=== PATIENT | female | born 1990 | race Two or more races ===

== ENCOUNTER 2017-03-30 00:33 | Inpatient (IN) | payer OTHER ==
[~2017-03-30] VITALS: Ht 160 cm; Wt 108.9 kg
[2017-03-30] VITALS (9 sets, daily range): BP systolic 113–142; BP diastolic 54–80
[2017-03-30] MEDS ORDERED: MELO15TA4 PO (00:46)
[2017-03-30] MEDS ORDERED: IBUP-1022 PO (00:46)
[2017-03-30] MEDS ORDERED: ROBA750T4 PO (00:46)
[2017-03-30] MEDS ORDERED: GABA-282 PO (00:46)
[2017-03-30 01:24] LABS: CONTROL LINE HCG INT CTR LINE PRESENT
[2017-03-30] MEDS ORDERED: MORPHINE 4 MG/ML 1ML SYRINGE IV ONE (01:30)
[2017-03-30] MEDS ORDERED: ONDANSETRON 4MG/2ML VIAL (J2405) IV ONE (01:30)
[2017-03-30 01:39] LABS: BASO % 0.3 % (0.0-1.0); EOS # 0.3 K/mm3 (0.0-0.50); EOS % 2.1 % (0.0-3.0); LARGE UNSTAINED CELL # 0.2 K/mm3 (0.0-0.4); LARGE UNSTAINED CELL % 1.2 % (0.0-4.0); LYMPH # 3.7 K/mm3 (1.5-6.5); LYMPH % 23.1 % (24.0-44.0); MEAN CORPUSCULAR HEMOGLOBIN 28.4 pg (27.0-33.0); MEAN CORPUSCULAR HGB CONC 33.9 g/dl (32.0-36.5); MEAN CORPUSCULAR VOLUME 83.6 fl (80.0-96.0); MONO # 0.6 K/mm3 (0.0-0.8); NEUTROPHILS # 10.6 K/mm3 (1.8-7.7); NEUTROPHILS % 69.2 % (36.0-66.0); PLATELET COUNT, AUTOMATED 329 k/mm3 (150-450); RED CELL DISTRIBUTION WIDTH 13.8 % (11.5-14.5); WHITE BLOOD COUNT 15.3 K/mm3 (4.0-10.0)
[2017-03-30 01:44] LABS: ANION GAP 7 MEQ/L (8-16); BLOOD UREA NITROGEN 12 MG/DL (7-18); CALCIUM LEVEL 9.4 MG/DL (8.5-10.1); CARBON DIOXIDE LEVEL 25 MEQ/L (21-32); CHLORIDE LEVEL 110 MEQ/L (98-107); CREATININE FOR GFR 0.88 MG/DL (0.55-1.02); GLOMERULAR FILTRATION RATE > 60.0 (>60); GLUCOSE, FASTING 116 MG/DL (70-105); POTASSIUM SERUM 3.6 MEQ/L (3.5-5.1); SODIUM LEVEL 142 MEQ/L (136-145)
--- NOTE | 2017-03-30 03:10 | REPUSA ---
CLINICAL HISTORY: left flank pain. TECHNIQUE: Multiple axial, sagittal and coronal CT images were obtained through the abdomen and pelvi s without administration of oral or IV contrast material. COMMENTS: The liver is fatty but otherwise of uniform attenuation without mass or defect. There is no intra or extrahepatic biliary ductal dilatation. The spleen is normal. The gallbladder is surgically absent. The pancreas is of normal contour and attenuation characteristics. There is no evidence of adrenal ma ss. The kidneys are normal in size, shape and configuration. No right renal or ureteral calculi are ident ified. There is a 12 x 10 mm calculus noted in the left UPJ producing moderate hydroureteronephrosis. Several additional punctate calculi noted in the left mid pole. There is no evidence for appendicitis. There is no bowel wall thickening. No evidence for small or la rge bowel obstruction. There is no evidence of abdominal ascites or lymphadenopathy. There is no evidence of intrinsic or extrinsic bladder mass. There is no pelvic ascites or lymphadeno drea. The uterus and ovaries are WNL. Images of the lung bases show no evidence of pleural or parenchymal mass. There are no pleural effusi ons. The bony structures are free of lytic or blastic lesions. IMPRESSION: 12 x 10 mm calculus noted in the left UPJ producing moderate hydroureteronephrosis. Several additiona l punctate calculi noted in the left mid pole. Thank you for your kind referral of this patient.
[2017-03-30] MEDS ORDERED: KETOROLAC 30 MG/ML VIAL (J1885) IV ONE (03:30)
[2017-03-30] MEDS ORDERED: MORPHINE 4 MG/ML 1ML SYRINGE IV PRN (04:00)
[2017-03-30] MEDS ORDERED: TRIMETHOPRIM/SULFAMETHOXAZOLE 160 MG in D5W 500 ML IV ONE (04:00)
[2017-03-30] MEDS ORDERED: GLUCAGON FOR INJ 1 MG VIAL (J1610) SC PRN (04:00)
[2017-03-30] MEDS ORDERED: GLUCOSE 4 GM CHEW TABLET PO PRN (04:00)
[2017-03-30] MEDS ORDERED: PERCOCET 5MG/325MG TAB PO PRN (04:00)
[2017-03-30] MEDS ORDERED: DEXTROSE 50% 50 ML SYRINGE IV PRN (04:00)
[2017-03-30] MEDS ORDERED: ONDANSETRON 4MG/2ML VIAL (J2405) IV PRN ×2 (04:00→17:00)
[2017-03-30] MEDS: NS 1,000 ML IV SCH ×3 (04:07→13:55)
[2017-03-30] MEDS ORDERED: NICOTINE POLACRILEX 2 MG GUM PO PRN (04:45)
--- NOTE | 2017-03-30 05:35 | HPE ---
DATE OF ADMISSION: 03/30/2017 PRIMARY CARE PROVIDER: Dr. Stahl. HOSPITALIST ATTENDING: Will be Dr. Joshua Negrete. CHIEF COMPLAINT: Left flank/back pain. HISTORY OF PRESENTING ILLNESS: 26-year-old female with no significant past medical history aside from active smoking presents to the emergency room with 2-day history of sharp stabbing pain on the left back radiating towards her stomach. Patient had been in her usual state of health until 2 days ago when she felt unwell and was nauseated and vomiting while at work. She then came home. She has had decrease in oral intake due to this and was watching television around 10:30 at night when she developed sharp stabbing pain on the left side of her back with radiation towards the stomach. She thought it was her sciatica acting up and therefore took one extra dose of gabapentin and methocarbamol. She denies any fever or chills. Per her friend and family, she was screaming in pain and presented to the emergency room for evaluation. She otherwise denies any dysuria, urgency, frequency or any hematuria. No prior episodes of kidney stones in the past. Denies any sexually transmitted diseases (STDs), vaginal discharge. Patient does admit to having the pain initially improve with ambulation, but once she sat down in the emergency room (ER), lying still makes it feel better and ambulation makes it worse. Urine is negative. CT abdomen and pelvis shows a stone in the ureteropelvic junction (UPJ) on the left which measures 12 x 10 mm producing moderate hydroureteronephrosis with several additional punctate calculi in the left mid pole. Hospitalist service was called to admit for left UPJ stone with moderate hydroureteronephrosis. She denies any recent weight gain, weight loss, changes in vision, rhinorrhea, sore throat, dysphagia, odynophagia, ear discharge, visual changes, blurred vision, shortness of breath, chest pain, pressure or tightness, cough. She has had episodes of nausea. Currently has back pain, radiation towards the stomach. No hematuria, dysuria, urgency, frequency, fever. Complains of left-sided back and flank pain, chronic sciatica, active smoker. Denies upper or lower extremity weakness. PAST MEDICAL HISTORY: cholelithiasis Obesity BMI Chronic Back Pain PAST SURGICAL HISTORY: 1. Cholecystectomy. 2. Laser surgery at the age of [age]. ALLERGIES: To HYDROCODONE and AMOXICILLIN causing nausea and vomiting. HOME MEDICATIONS: Gabapentin 600 mg po qhs Ibuprofen 600 mg po q6hrs PRN Meloxicam 15 mg po daily Robaxin 750 mg po q6hrs PRN SOCIAL HISTORY: Smokes 5-6 cigarettes a day since 2011. Denies alcohol use. 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 FAMILY HISTORY: Mother alive age 45 with her hip repaired, cervical cancer and rheumatoid arthritis. Father is alive with unknown medical problems. REVIEW OF SYSTEMS: 12-point systems obtained, all of which are negative aside from positive findings on history of present illness (HPI). PHYSICAL EXAMINATION: Temperature 96.1, pulse 97 sinus rhythm, respiratory rate 18, blood pressure 123/77, 100% on room air. Generally, awake, alert, oriented times three, answering questions appropriately. No icterus, jaundice. Pupils are equally round and reactive to light and accommodation. Extraocular muscles are intact. Normocephalic, atraumatic. Moist mucous membranes. Neck is supple, full range of motion. No cervical lymphadenopathy, thyromegaly or pharyngeal erythema. Lungs are clear to auscultation. No wheezing, rales or rhonchi. Air entry is equal bilaterally. Heart: S1, S2, sinus rhythm. No murmurs, rubs or gallops. Abdomen is soft. Positive costovertebral angle (CVA) tenderness on the left. No rebound or guarding. Positive bowel sounds times four quadrants. No hepatosplenomegaly. Cholecystectomy scar noted, well healed. Extremities: No cyanosis, clubbing or any pitting edema. LABORATORY DATA: White count 15.3, hemoglobin 13, hematocrit 39, platelet count 329, 69% neutrophils. Sodium 142, potassium 3.6, chloride 110, bicarbonate 25, BUN 12, creatinine 0.88 , glucose 116, calcium 9.4, lipase of 173. HCG is negative. Urinalysis cloudy urine, pH of 5, 2+ protein, negative ketones, glucose, 3+ blood, negative nitrite, 1+ leukocyte esterase, 9 WBCs, 3+ bacteria. Microbiology: Urine and blood cultures are pending. IMAGING STUDIES: CT abdomen and pelvis shows liver is fatty, otherwise of uniform attenuation without mass or defect. There is no intra or extrahepatic biliary ductal dilatation. Spleen is normal. Gallbladder is surgically absent. Pancreas is of normal contour and attenuation characteristics. No evidence of adrenal mass. Kidneys are normal size, shape and configuration. No right renal ureteral calculi are identified. There is a 12 x 10 mm calculus noted in left UPJ producing moderate hydroureteronephrosis, several additional punctate calculi noted in left mid pole. No evidence of appendicitis. No bowel wall thickening. No small bowel obstruction. No evidence of abdominal ascites or lymphadenopathy. No evidence of intrinsic or extrinsic bladder mass. No pelvic ascites or lymphadenopathy. Uterus and ovaries are within normal limits. There are no pleural effusions. Bony structures are free of lytic or blastic lesions. ASSESSMENT AND PLAN: This is a 26-year-old female with history of morbid obesity, body mass index (BMI) of 41.7, active tobacco use, presents to the emergency room with a 2-day history of increasing left-sided back pain, radiation down towards her stomach, found to have a left ureteropelvic junction (UPJ) stone and moderate hydronephrosis, admitted under medical service. She will be admitted as an inpatient for the following issues: 1. Systemic inflammatory response with respiratory rate of 26, pulse of 97. Most likely secondary to left UPJ stone. Supportive care for now with intravenous fluids and antibiotics. 2. Left UPJ stone, which is obstructing causing hydroureteronephrosis. Creatinine is still normal. Per Dr. May Perez's recommendations, urologist construction code administrator, patient is to be given Bactrim and kept nothing by mouth. Intravenous (IV) fluids for now. Hyperglycemic protocol and fingersticks every 6 hours while patient is nothing by mouth to prevent hyperglycemia. 3. Morbid obesity, BMI of 41. Check lipid profile and hemoglobin A1c. Patient will need to diet and followup with primary care physician for weight loss programs and referral to senior director of strategy. 4. Active smoking. Tobacco cessation counseling. Nicotine gum and nicotine patch. 5. Deep venous thrombosis (DVT) prophylaxis with compression stockings. 6. History of chronic back pain. Hold off on chronic gabapentin and methocarbamol and ibuprofen for now. Patient will be assigned to Dr. Joshua Negrete at 7 a.m. on 03/30/2017. [facility]OSPITALAlecia
[2017-03-30] MEDS: NICOTINE 7 MG/24 HR TRANSDERMAL TD SCH ×2 (09:00→09:14)
[2017-03-30] MEDS ORDERED: CONRAY-60 60% 50ML VIAL (Q9961) As Ordered ONE (15:11)
[2017-03-30] MEDS ORDERED: LIDOCAINE 2% 5ML JELLY UROJET As Ordered ONE (15:46)
[2017-03-30] MEDS ORDERED: PROPOFOL 200 MG/20 ML VIAL As Ordered ONE ×2 (15:47→16:02)
[2017-03-30] MEDS ORDERED: LIDOCAINE 2% INJ 100 MG/5 ML SDV (FOR ANES.) As Ordered ONE (15:47)
[2017-03-30] MEDS ORDERED: MIDAZOLAM INJ 2 MG/2 ML VIAL (J2250) As Ordered ONE (15:47)
[2017-03-30] MEDS ORDERED: fentaNYL 100 MCG/2 ML INJECTION (J3010) As Ordered ONE (15:47)
[2017-03-30] MEDS ORDERED: ONDANSETRON 4MG/2ML VIAL (J2405) As Ordered ONE (15:56)
--- NOTE | 2017-03-30 16:25 | REP ---
Retrograde pyelogram: A series of two intraoperative fluoroscopic views is performed during placement of a left ureteral stent. Final film reveals the proximal pigtail to be an upper pole mariah of the left kidney. The distal pigtail is excluded at the inferior margin of the film. Fluoroscopic exposure time is 9 seconds. Fluoroscopic images are performed with last image hold technology. These images require no additional radiation. Signed by Matti Casas MD 03/30/2017 04:17 P
[2017-03-30] MEDS ORDERED: LR 1,000 ML IV SCH (17:00)
[2017-03-30] MEDS ORDERED: fentaNYL 100 MCG/2 ML INJECTION (J3010) IV PRN (17:00)
--- NOTE | 2017-03-30 17:03 | CR ---
DATE OF CONSULTATION: 03/30/2017 REASON FOR CONSULTATION: Left ureteropelvic junction obstructing stone measuring 12 x 10 mm. HISTORY OF PRESENT ILLNESS: The patient is a 26-year-old female who comes in with left back pain radiating to the groin pain with nausea and vomiting. She has had the pain several days prior to her presentation at the emergency room but it was just a crampy pain and all the sudden became extremely severe. A CT scan of the abdomen and pelvis was done which showed a 12 x 10 mm calculus in the left ureteropelvic junction with moderate hydroureter nephrosis. Some several punctate calculi was noted in the left mid pole but no other stones were seen. The patient was admitted for observation and I recommend surgical management. Her white blood count on admission was 15,000 but she has been afebrile. The patient denies any gross hematuria or previous history of kidney stones. She has no burning with urination and she has had two urinary tract infections during her lifetime and these were during a . She normally feels like she empties her bladder completely and denies any previous urinary history. PAST MEDICAL HISTORY: Migraine headaches and sciatica. PAST SURGICAL HISTORY: Cholecystectomy and laser surgery on her eye when she was 5 years of age. MEDICATIONS: Permanent control implant in her arm, meloxicam, gabepentin, and methocarbamol. SOCIAL HISTORY: She is with two children. She does smoke 5-10 cigarettes daily. She does not drink alcohol or use drugs. FAMILY HISTORY: There is no family history of kidney stones. Her mother is 45 with high blood pressure and her father is 45 and healthy. There is diabetes and heart disease in her grandparents. REVIEW OF SYSTEMS: A 12-system review was essentially negative except for sciatica, migraine headaches, and then what is in the history of present illness (HPI). PHYSICAL EXAMINATION: This is a well-developed, well-nourished female lying in the hospital bed in no apparent respiratory distress, alert and oriented times three. She is afebrile at 97.4. Her blood pressure is 113/57 and her pulse is 77. She appears comfortable and not in any acute pain. Her head is normocephalic and atraumatic. Her eyes are pupils are equal, round, and reactive to light and accommodation (PERRLA) and extraocular muscles intact (EOMI). Her neck is supple and there is no supraclavicular or cervical adenopathy. Her heart has a regular rate and rhythm. Her lungs are clear to auscultation and percussion. She has no costovertebral angle (CVA) tenderness now. Her abdomen is soft and nontender without any rebound, guarding or masses. Her extremities show no cyanosis, clubbing or edema. LABORATORY DATA: Her white blood count was 15.3 on admission at 1:00 a.m. I was called at 4:00 a.m. Her hemoglobin 13.5 and her hematocrit is 39.8. Her BUN is 12 and her creatinine is 0.88. Her HCG is negative for . A CT scan of the abdomen and pelvis on 03/30/2017 did show a 12 x 10 mm left UPJ stone and some punctate left stones. DISCUSSION: I discussed these findings at length with Ana Maria in the hospital today. I recommend that she have a ureteral stent placed as soon as possible. I called down to the operating room very early this morning, since I got called with the consultation at 4:00 a.m.. Unfortunately, there are four or five emergency cases in the operating room and I will not be able to take her until this afternoon. At this point though, she is stable and I have been asked to be called if she spikes any temperatures. We discussed exactly how cystoscopy and left ureteral stent is done. We discussed the major risks of the procedure which included but was not limited to the risks of general anesthesia, reactions to medication, bleeding, infection, pain from the stent, need to take care of the stone in the future, and need for stent removal. At this point, she understands that we are not removing the stone and just placing the stent to decompress the infected obstructed system. All of her questions were answered and informed consent was obtained. IMPRESSION: 1. A 12 x 10 mm left ureteropelvic junction (UPJ) stone causing severe left back pain in a patient with a white blood count of 15, but now very comfortable after pain medications. 2. Smoker. 3. Other medical problems including migraine headaches and sciatica. 4. Punctate left calculi also but in a patient who had never passed a previous kidney stone. PLAN: 1. Bring the patient to the operating room today for a cystoscopy and left ureteral stent placement. 2. Continue medical management with IV fluids, antibiotics, and pain control. 3. Await final urine and blood cultures.
[2017-03-30] MEDS: BACTRIM 160MG/800MG DS TAB PO SCH (20:28)
[2017-03-30] MEDS: PERCOCET 5MG/325MG TAB PO PRN (21:03)
[2017-03-31 02:00] VITALS: BP 113/68
[2017-03-31] MEDS: PERCOCET 5MG/325MG TAB PO PRN (05:22)
[2017-03-31 06:00] VITALS: BP 134/77
[2017-03-31 07:06] LABS: BASO % 0.4 % (0.0-1.0); EOS # 0.2 K/mm3 (0.0-0.50); EOS % 2.2 % (0.0-3.0); LARGE UNSTAINED CELL # 0.2 K/mm3 (0.0-0.4); LARGE UNSTAINED CELL % 1.5 % (0.0-4.0); LYMPH # 2.6 K/mm3 (1.5-6.5); LYMPH % 25.2 % (24.0-44.0); MEAN CORPUSCULAR HEMOGLOBIN 28.3 pg (27.0-33.0); MEAN CORPUSCULAR HGB CONC 34.1 g/dl (32.0-36.5); MONO # 0.4 K/mm3 (0.0-0.8); MONO % 4.1 % (0.0-5.0); NEUTROPHILS # 6.8 K/mm3 (1.8-7.7); NEUTROPHILS % 66.6 % (36.0-66.0); PLATELET COUNT, AUTOMATED 293 k/mm3 (150-450); RED CELL DISTRIBUTION WIDTH 13.4 % (11.5-14.5); WHITE BLOOD COUNT 10.2 K/mm3 (4.0-10.0)
[2017-03-31 07:21] LABS: ANION GAP 9 MEQ/L (8-16); BLOOD UREA NITROGEN 8 MG/DL (7-18); CALCIUM LEVEL 8.3 MG/DL (8.5-10.1); CARBON DIOXIDE LEVEL 25 MEQ/L (21-32); CHLORIDE LEVEL 111 MEQ/L (98-107); CREATININE FOR GFR 0.66 MG/DL (0.55-1.02); GLOMERULAR FILTRATION RATE > 60.0 (>60); GLUCOSE, FASTING 83 MG/DL (70-105); POTASSIUM SERUM 4.5 MEQ/L (3.5-5.1); SODIUM LEVEL 145 MEQ/L (136-145)
[2017-03-31] MEDS: BACTRIM 160MG/800MG DS TAB PO SCH (08:34)
[2017-03-31] MEDS: NICOTINE 7 MG/24 HR TRANSDERMAL TD SCH (08:35)
[2017-03-31] MEDS ORDERED: BACT800T5 PO (08:56)
--- NOTE | 2017-03-31 09:22 | RO ---
DATE OF PROCEDURE: 03/30/2017 PREOPERATIVE DIAGNOSIS: 12 x 10 mm obstructing left ureteral pelvic junction stone. POSTOPERATIVE DIAGNOSIS: 12 x 10 mm obstructing left ureteral pelvic junction stone. PROCEDURE: Cystoscopy, left retrograde pyelogram, and left double-J ureteral stent placement. SURGEON: Dr. May Perez CONDUIT REAMER OPERATOR: ANESTHESIA: MAC with local. FINDINGS: Stone well seen on x-ray. DRAINS: #6-Uzbek universal double-J ureteral stent. INDICATIONS FOR PROCEDURE: The patient is a 26-year-old female who was admitted through the emergency room early this morning with complaints of severe left flank pain, found on CT scan to have a 12 x 10 mm left ureteral pelvic junction stone with obstruction and a white blood count of15,000. After discussing all different options, alternatives, risks, and benefits it was decided to bring her emergently to the operating room for cystoscopy and stent placement. All options, alternatives, risks and benefits were discussed and informed consent was obtained in both verbal and written form. PROCEDURE: The patient was brought into the operating room. She had been getting Bactrim DS and had thromboembolic deterrent stockings (TEDS) and sequential compression devices in place. Anesthesia was induced and she was placed in the lithotomy position and careful attention was paid that her pressure points were well padded and protected. She was prepped and draped in the usual fashion. 2% lidocaine jelly was placed in the urethra. Next, a 21-Uzbek cystoscope was inserted. The urethra was noted to be open without any evidence of lesions or strictures. Upon entering the bladder, both ureteral orifices were seen. There was no evidence of stones, erythematous patches, lesions or other significant abnormalities. At this point, a 0.035 Guidewire was placed in the left ureteral orifice and a retrograde pyelogram was done which showed the stone extremely well and there was no other obstruction. At this point, a #6-Uzbek universal double-J ureteral stent was placed and there was an excellent curl up in the kidney and down in the bladder. The bladder was emptied and the patient was returned to recovery room in stable condition. Preoperatively, it was discussed with the patient that we were only placing a stent and that the stones still needed to be removed in the future. She will be scheduled as an outpatient for ESWL. She also clearly understands that the stent will need to be removed at some point.
[2017-03-31 10:00] VITALS: BP 105/59
[2017-03-31] MEDS ORDERED: CIPR-249 PO (10:06)
--- NOTE | 2017-03-31 11:58 | DSES ---
DATE OF ADMISSION: 03/30/2017 DATE OF DISCHARGE: DISCHARGE DIAGNOSIS: Hydroureteronephrosis. SECONDARY DIAGNOSES: Obstructing ureteral stone. Obesity. Chronic back pain. CONSULTS: May Perez MD, urology PROCEDURES: Ureteral stent placement 03/30/2017. HOSPITAL COURSE: The patient is a 26-year-old female who presented with left-sided flank and inguinal pain. In the emergency room for 1 day. She was found to have a 12 x 10 mm calculus in the left ureteropelvic junction (UPJ) producing moderate hydroureteronephrosis with several additional punctate calculi in the left mid pole. The patient was seen by the emergency room and then by Dr. Kay who admitted the patient to the medical-surgical floor. I saw the patient early in the morning of 03/30/2017, as well, and contacted Dr. Perez of urology, who presented to the hospital and completed a stent placement in the left ureter. The patient tolerated the procedure well. At the present time, the patient's pain is significantly reduced. She denies chest pain, shortness of breath, fevers, chills, nausea, vomiting, or diarrhea. OBJECTIVE: Vital signs: Temperature 98.1, pulse 75, respiratory rate 17, blood pressure (BP) 134/77, oxygen (O2) saturation 97% on room air. General: She is a pleasant young obese female, lying flat in bed. She is in no acute distress. Her at bedside. HEENT: Cranial nerves II-XII are grossly intact. She has moist mucous membranes. No elevated in central venous pressure (CVP). Cardiovascular: S1, S2, regular. Respiratory examination: Is clear. Abdominal examination: Is grossly obese. No costovertebral angle (CVA) tenderness. Extremities: No clubbing, cyanosis, or edema. LABORATORY STUDIES: WBC 10.2 down from 15.3, hemoglobin 13, platelet count 293. Chemistry panel: Sodium 145, potassium 4.5, chloride 111, bicarbonate 25, BUN 8, creatinine 0.6. She had a lipase within normal limits, a TSH within normal limits, an hCG which was negative. Urinalysis (UA) was positive for blood. A urine culture was negative. Blood cultures were negative. IMAGING: The patient did have a CT of the abdomen and pelvis, which revealed 12 x 10 mm calculus that was in the left UPJ producing moderate hydroureteronephrosis, as well as several additional punctate calculi noted in the left mid pole. ASSESSMENT AND PLAN: This is a 26-year-old female with obstructing left ureteral stone, status post stent placement by urology. PROBLEMS: 1. Left obstructing ureteral stone. Urology's help was greatly appreciated. She is status post stent placement. The patient tolerated the procedure well. Cultures have been negative for leukocytosis downtrending. Laura Perez completed much of the discharge, including prescription for Bactrim. However, the patient's potassium did go up by 9 mEq overnight after receiving Bactrim; and as such, I will actually change her to ciprofloxacin, however, and discharge her for the same amount of time as urology feels antibiotics are indicated. She is to followup with urology services 03/23/2017 at 8 a.m. She has a scheduled appointment for extracorporeal shock wave lithotripsy (ESWL). Her activity is as tolerated. Her diet is as prior to admission. She is to return to the emergency room (ER) if her symptoms worsen. 2. Chronic back pain. Continue with gabapentin, ibuprofen, meloxicam, methocarbamol. MEDICATIONS AT THE TIME OF DISCHARGE: - Cipro 500 mg by mouth twice a day for 10 days - gabapentin 300 mg nightly - ibuprofen 600 mg every 6 hours as needed for pain - meloxicam 50 mg daily - Robaxin 750 mg every 6 hours as needed for spasms Greater than 30 minutes was spent organizing disposition.
== END 2017-03-31 12:05 | disposition home or self-care (01) | DRG 465 ==
LOC: M ED 00:33 → M ED INP 03:55 → M MSPAV 07:43
PROVIDERS: ADMIT General Practice; ATTEND Internal Medicine
PROC: 0T778DZ Dilation of Left Ureter with Intraluminal Device, Via Natural or Artificial Opening Endoscopic (ICD-10-PCS; principal; 2017-03-30 12:14)
DX: N13.2 Hydronephrosis with renal and ureteral calculous obstruction (principal); E66.01 Morbid (severe) obesity due to excess calories; Z68.41 Body mass index [BMI] 40.0-44.9, adult; Z79.899 Other long term (current) drug therapy; Z88.0 Allergy status to penicillin; Z88.8 Allergy status to other drugs, medicaments and biological substances; F17.210 Nicotine dependence, cigarettes, uncomplicated

== ENCOUNTER 2017-04-03 17:17 | Observation (INO) | payer OTHER ==
[~2017-04-03] VITALS: Ht 160 cm; Wt 104.5 kg
[~2017-04-03 17:17] MED LIST: BACT800T5 PO; CIPR-249 PO; GABA-282 PO; IBUP-1022 PO; MELO15TA4 PO; ROBA750T4 PO
[2017-04-03] MEDS ORDERED: FLOM5CAP PO (17:28)
[2017-04-03] MEDS ORDERED: OXYCODONE (17:28)
[2017-04-03] MEDS ORDERED: NS 1,000 ML IV ONE (18:45)
[2017-04-03] MEDS ORDERED: ONDANSETRON 4MG/2ML VIAL (J2405) IV ONE (18:45)
[2017-04-03] MEDS ORDERED: MORPHINE 4 MG/ML 1ML SYRINGE IV ONE (18:45)
[2017-04-03 19:04] LABS: CALCIUM OXALATE CRYSTALS SMALL
[2017-04-03 19:24] LABS: BASO % 0.2 % (0.0-1.0); EOS # 0.3 K/mm3 (0.0-0.50); EOS % 2.5 % (0.0-3.0); LARGE UNSTAINED CELL # 0.2 K/mm3 (0.0-0.4); LARGE UNSTAINED CELL % 1.2 % (0.0-4.0); LYMPH # 2.4 K/mm3 (1.5-6.5); LYMPH % 17.5 % (24.0-44.0); MEAN CORPUSCULAR HEMOGLOBIN 29.1 pg (27.0-33.0); MEAN CORPUSCULAR HGB CONC 35.7 g/dl (32.0-36.5); MEAN CORPUSCULAR VOLUME 81.3 fl (80.0-96.0); MONO # 0.5 K/mm3 (0.0-0.8); MONO % 3.5 % (0.0-5.0); NEUTROPHILS # 9.6 K/mm3 (1.8-7.7); PLATELET COUNT, AUTOMATED 324 k/mm3 (150-450); RED CELL DISTRIBUTION WIDTH 13.6 % (11.5-14.5); WHITE BLOOD COUNT 12.8 K/mm3 (4.0-10.0)
[2017-04-03 19:59] LABS: ANION GAP 11 MEQ/L (8-16); BLOOD UREA NITROGEN 11 MG/DL (7-18); CALCIUM LEVEL 8.7 MG/DL (8.5-10.1); CARBON DIOXIDE LEVEL 24 MEQ/L (21-32); CHLORIDE LEVEL 107 MEQ/L (98-107); CREATININE FOR GFR 0.77 MG/DL (0.55-1.02); GLOMERULAR FILTRATION RATE > 60.0 (>60); GLUCOSE, FASTING 141 MG/DL (70-105); POTASSIUM SERUM 3.6 MEQ/L (3.5-5.1); SODIUM LEVEL 142 MEQ/L (136-145)
[2017-04-03] MEDS ORDERED: NS 1,000 ML IV SCH (20:53)
[2017-04-03] MEDS ORDERED: ACETAMINOPHEN TAB 650MG DOSE (2X325MG) PO PRN (21:00)
[2017-04-03] MEDS ORDERED: PERC5TAB12 PO (21:18)
[2017-04-03] MEDS ORDERED: METH1TAB40 PO (21:18)
[2017-04-03] MEDS ORDERED: FLON1SPR (21:18)
[2017-04-03] MEDS ORDERED: CIPR500T3 PO (21:18)
[2017-04-03] MEDS: PERCOCET 5MG/325MG TAB PO PRN (21:26)
[2017-04-03] MEDS: MORPHINE 2 MG/ML 1ML SYRINGE IV PRN (21:27)
[2017-04-03] MEDS: ONDANSETRON 4MG/2ML VIAL (J2405) IV PRN (21:27)
[2017-04-03] MEDS ORDERED: LevoFLOXacin IV 500 MG in APPROPRIATE DILUENT 1 EA IV SCH (22:00)
[2017-04-03 23:10] VITALS: BP 132/76
[2017-04-03] MEDS: DOCUSATE SODIUM 100 MG CAP PO SCH (23:42)
[2017-04-04] VITALS (8 sets, daily range): BP systolic 110–164; BP diastolic 58–81
[2017-04-04] MEDS: MORPHINE 2 MG/ML 1ML SYRINGE IV PRN (00:59)
[2017-04-04] MEDS: ONDANSETRON 4MG/2ML VIAL (J2405) IV PRN ×2 (04:10→12:40)
[2017-04-04] MEDS: PERCOCET 5MG/325MG TAB PO PRN (04:11)
--- NOTE | 2017-04-04 07:27 | SMCUROLCON ---
Urology Consultation General Date of Consultation 04/04/17 Reason For Consultation This patient is seen for Obstruction Of Left Upj Due To Stone. History of Present Illness This is a 26 y/o F w/ no significant PMH, who presented to the ED last night w/ worsening left flank pain. We were consulted to evaluate the patient. She was taken to the OR on 03/30/17 for cystoscopy and left ureteral stent placement for an obstructing 1.2cm left UPJ stone. She was also placed on cipro since then. She notes that since the stent placement her left flank pain has only worsened. She denies dysuria. She denies fevers or chills. In the ED, her pain was not controlled w/ oral pain medications. A repeat CT A/P was obtained which was notable for the stent being in the right place and persistent mild to moderate left hydronephrosis. Past Medical History Medical History kidney stones Surgical Hstory left ureteral stent placement Medications Current Medications Current Medications Acetaminophen (Tylenol Tab) 650 mg Q4HP PRN PO MILD PAIN or TEMP > 101; Start 04/03/17 at 21:00; Stop 05/03/17 at 20:59 Docusate Sodium (Colace) 100 mg BID PO ; Start 04/03/17 at 21:00; Stop 05/03/17 at 20:59 Home Med (Med Rec Complete!) ASDIRECTED XX ; Start 04/03/17 at 21:30; Stop at 21:30; Status DC Levofloxacin 500 mg/IV Miscellaneous Supplies 100 ml @ 100 mls/hr Q24H IV Last administered on 04/03/17 23:42; Start 04/03/17 at 22:00; Stop 04/10/17 at 21:59 Morphine Sulfate (Morphine Sulfate Inj) 2 mg Q2HP PRN IV SEVERE PAIN (PS 8-10) Last administered on 04/04/17 00:59; Start 04/03/17 at 21:00; Stop 04/10/17 at 20:59 Ondansetron HCl (ZOFRAN INJection) 4 mg Q6HP PRN IV NAUSEA OR VOMITING Last administered on 04/04/17 04:10; Start 04/03/17 at 21:00; Stop 05/03/17 at 20:59 Oxycodone/ Acetaminophen (Percocet 5mg/ 325mg Tablet) 1 tab Q4HP PRN PO MODERATE PAIN (PS 5-7) Last administered on 04/04/17 04:11; Start 04/03/17 at 21:00; Stop 04/10/17 at 20:59 Sodium Chloride 1,000 ml @ 50 mls/hr Q20H IV Last administered on 04/03/17 23 :00; Start 04/03/17 at 20:53; Stop 05/03/17 at 20:52 Allergies Allergies: Coded Allergies: Amoxicillin (Verified Allergy, Unknown, 03/30/17) Hydrocodone (Verified Adverse Reaction, Mild, VOMIT, 03/30/17) Review of Systems General: Reports: Normal Appetite, Denies: Fatigue, Malaise Constitutional: Denies: Fever, Chills, Sweats, Weakness, Malaise Pulmonary: Denies: Dyspnea, Cough Cardiovascular: Denies Chest Pain, Denies Palpitations Gastrointestinal: Denies: Nausea, Vomiting, Abdominal Pain Genitourinary: Denies: Dysuria, Frequency Musculoskeletal: Reports: Back Pain (severe left flank pain) Neurological: Denies: Weakness, Numbness, Incoordination, Change in Speech Psych: Reports: Mood Normal, Denies: Anxiety, Depression Physical Examination General Exam: Alert, No Acute Distress ENT EXAM: Atraumatic Chest Exam: Clear to auscultation, Normal air movement Heart Exam: Rate Normal, Regular Rhythm Abdomen Exam: Soft Skin Exam: Nl turgor and temperature Neuro Exam: Normal Speech Psych Exam: Mental status NL, Mood NL Vital Signs/I&O Vital Signs Date Time Temp Pulse Resp B/P (MAP) Pulse Ox O2 Delivery O2 Flow Rate FiO2 04/04/17 04:41 18 04/04/17 04:00 98.8 87 133/62 (85) 98 Room Air I&O- Last 24 Hours up to 6 AM 04/04/17 06:00 Intake Total 590 ml Output Total 800 ml Balance -210 ml Laboratory Data 24H Labs Laboratory Tests 2 04/03/17 18:35: Urine Appearance CLOUDYH, Urine Color YELLOW, Urine pH 5.0, Urine Specific Beggs 1.028, Urine Protein 2+H, Urine Glucose (UA) NEGATIVE, Urine Ketones NEGATIVE, Urine Urobilinogen 0.2, Urine Bilirubin NEGATIVE, Urine Leukocyte Esterase TRACEH, Urine Blood 3+H, Urine Nitrite NEGATIVE, Urine WBC (Auto) 41H, Urine RBC (Auto) TNTCH, Urine Hyaline Casts (Auto) 0, Urine Bacteria (Auto) 1+H , Urine Squamous Epithelial Cells 6, Urine Calcium Oxalate Cryst (Auto) SMALL, Urine Mucus (Auto) LARGE, Urine Sperm (Auto) 04/03/17 19:06: White Blood Count 12.8H, Red Blood Count 4.68, Hemoglobin 13.6, Hematocrit 38.1 , Mean Corpuscular Volume 81.3, Mean Corpuscular Hemoglobin 29.1, Mean Corpuscular Hemoglobin Concent 35.7, Red Cell Distribution Width 13.6, Platelet Count 324, Neutrophils (%) (Auto) 75.0H, Lymphocytes (%) (Auto) 17.5L, Monocytes (%) (Auto) 3.5, Eosinophils (%) (Auto) 2.5, Basophils (%) (Auto) 0.2, Neutrophils # (Auto) 9.6H, Lymphocytes # (Auto) 2.4, Monocytes # (Auto) 0.5, Eosinophils # (Auto) 0.3, Basophils # (Auto) 0.0, Large Unclassified Cells % 1.2 , Large Unclassified Cells # 0.2, Anion Gap 11, Glomerular Filtration Rate > 60.0, Blood Urea Nitrogen 11, Creatinine 0.77, Sodium Level 142, Potassium Level 3.6, Chloride Level 107, Carbon Dioxide Level 24, Calcium Level 8.7 CBC/BMP Laboratory Tests 04/03/17 19:06 Red Blood Count 4.68, Mean Corpuscular Volume 81.3, Mean Corpuscular Hemoglobin 29.1, Mean Corpuscular Hemoglobin Concent 35.7, Red Cell Distribution Width 13.6 , Neutrophils (%) (Auto) 75.0 H, Lymphocytes (%) (Auto) 17.5 L, Monocytes (%) ( Auto) 3.5, Eosinophils (%) (Auto) 2.5, Basophils (%) (Auto) 0.2, Neutrophils # ( Auto) 9.6 H, Lymphocytes # (Auto) 2.4, Monocytes # (Auto) 0.5, Eosinophils # ( Auto) 0.3, Basophils # (Auto) 0.0, Calcium Level 8.7 Microbiology Microbiology 04/03/17 Urine Culture, Received Pending Assessment This is a 26 y/o F w/ a 1.2cm left UPJ stone w/ persistent left flank pain and hydro despite left ureteral stent placement on 03/30/17. We will admit the patient for pain control. I have also recommended that we take her to the OR for cystoscopy, left ureteroscopy w/ laser lithotripsy, and left ureteral stent placement. Plan - admit for observation - percocet, morphine prn pain - informed consent signed for cystoscopy, left ureteroscopy w/ laser lithotripsy , possible left ureteral stent placement - IVF - levaquin IV as urine has a lot of WBCs on UA and urine culture is still pending - zofran prn nausea - strict I/Os - ambulate - NPO until surgery KALYAN GUADARRAMA MD Apr 04, 2017 07:27
[2017-04-04] MEDS: DOCUSATE SODIUM 100 MG CAP PO SCH (09:00)
--- NOTE | 2017-04-04 09:28 | REPUSA ---
HISTORY: KNOWN KIDNEY STONE; INCREASED PAIN; ?HYDRO/OBSTRUCTION - PT SAID LEFT FLANK PAIN. Comparis on is made to previous CT of abdomen dated 03/30/17. TECHNIQUE: Axial CT imaging of abdomen and pelvis with sagittal and coronal reformatted imaging witho ut contrast. DLP= 957.1 mGy-cm. FINDINGS: The examination demonstrates interval placement of a double-J catheter extending from the l eft renal pelvis to the urinary bladder. There is a persistent 1.2 cm calculus at the left ureterope lvic junction and there is no change in a tiny 1 mm calculus in the left mid kidney posteriorly. Sma ll amount of gas is noted in the left renal collecting system, most likely iatrogenic at time of sten t placement. There is decrease in the left hydronephrosis since previous examination. The right kid tamara, right ureter, and urinary bladder are normal with no mass or evidence of obstruction or calcific ation seen. There is minimal linear atelectasis at the right lung base. Bone windows demonstrate no evidence of fracture or destructive bony lesion. The liver, biliary tree in patient status post cholecystectomy, spleen, pancreas, adrenal glands, abd ominal aorta, and an IVC are normal. No retroperitoneal adenopathy is seen. No pelvic mass lesions or abnormal peritoneal fluid collections are seen. The bowel appears normal w ith no evidence of bowel wall mass lesion, obstruction, perforation, inflammatory reaction, or eviden ce of diverticulitis. No abdominal wall hernia is seen. IMPRESSION: 1. Satisfactory placement of left ureteral stent extending from the left renal pelvis to the urinary bladder with moderate residual left hydronephrosis and tiny 1 mm calculus in the left ki dney and a large 1.2 cm calculus at the left ureteropelvic junction. Right kidney, right ureter, and urinary bladder are normal. 2. The remainder of the noncontrast CT examination of the abdomen and pelvis is normal.
[2017-04-04] MEDS ORDERED: PROPOFOL 200 MG/20 ML VIAL As Ordered ONE (13:50)
[2017-04-04] MEDS ORDERED: fentaNYL 100 MCG/2 ML INJECTION (J3010) As Ordered ONE (13:50)
[2017-04-04] MEDS ORDERED: LIDOCAINE 2% INJ 100 MG/5 ML SDV (FOR ANES.) As Ordered ONE (13:50)
[2017-04-04] MEDS ORDERED: ONDANSETRON 4MG/2ML VIAL (J2405) As Ordered ONE (13:50)
[2017-04-04] MEDS ORDERED: dexameTHASONE 4 MG/ML 1ML VIAL (J1100) As Ordered ONE (13:50)
[2017-04-04] MEDS ORDERED: MIDAZOLAM INJ 2 MG/2 ML VIAL (J2250) As Ordered ONE (13:50)
[2017-04-04] MEDS ORDERED: CONRAY-60 60% 50ML VIAL (Q9961) As Ordered ONE (14:04)
[2017-04-04] MEDS ORDERED: ceFAZolin 2 GM/D5W 50 ML IV BAG (J0690) As Ordered ONE (14:22)
[2017-04-04] MEDS ORDERED: METOCLOPRAMIDE INJ 10MG/2ML VIAL (J2765) As Ordered ONE (14:54)
[2017-04-04] MEDS ORDERED: HYDROmorphone HCL 2 MG/ML 1ML VIAL (J1170) As Ordered ONE (15:06)
--- NOTE | 2017-04-04 15:54 | REP ---
Retrograde pyelogram: Three views. History: Kidney stone. 14 seconds of fluoroscopy time is reported. Findings: A sequence of three last image hold fluoro spot radiographs of the abdomen document double pigtailed ureteral stent placement, guidewire manipulation, and ureteral contrast injection. No laterality markers are seen. Signed by Jonatan Su MD 04/04/2017 04:45 P
[2017-04-04] MEDS ORDERED: TYLE325T5 PO (18:03)
[2017-04-04] MEDS ORDERED: OXYBPOW PO (18:03)
--- NOTE | 2017-04-07 07:11 | RO ---
DATE OF PROCEDURE: 04/04/2017 PREPROCEDURE DIAGNOSIS: Left ureteral stone. POSTPROCEDURE DIAGNOSIS: Left ureteral stone. PROCEDURE: Cystoscopy, left ureteroscopy with laser lithotripsy and basket extraction of stones, left retrograde pyelogram with intraoperative interpretation of images, left ureteral stent exchange. SURGEON: Dr. Linus Bonner ANY COMMODITY BUYER: None. ANESTHESIA: General. OPERATIVE INDICATIONS: This is a 26-year-old female who was found to have an obstructing 1 cm proximal left ureteral stone approximately 1 week ago. She was brought to the operating room for left ureteral stent placement. Despite placement of the stent, she has continued to have worsening left flank pain and was therefore admitted to the hospital overnight for pain control with plan to bring her to the operating room today to remove her stone. DESCRIPTION OF PROCEDURE: The patient was brought to the operating room where general anesthesia was induced. Prophylactic antibiotics were infused. She was then placed in dorsal lithotomy position, prepped and draped in the usual sterile fashion. A rigid cystoscope was inserted into the urethral meatus and advanced into the bladder. Once within the bladder, the previously placed stent was seen. The stent was then grasped and withdrawn until the distal end was seen protruding from the urethral meatus. The wire was then advanced up the stent up into the left collecting system. The stent was then removed leaving the wire in place. Next I advanced a ureteral access sheath over the wire up into the left collecting system. The stylet was the removed and the wire was secured to the drape to serve as a safety wire. Next, a flexible ureteroscope was advanced up the ureteral access sheath and in the proximal left ureter, a 1 cm stone was seen. The stone was then fragmented into several smaller pieces using 200 Micron laser fiber. All the larger fragments were removed with a basket. The remainder of the stone was actually pushed back into the kidney. Any larger stone fragments were fragmented more with the laser until there was nothing remaining except for tiny fragments that should be small enough to pass. At this point, I examined the rest of the kidney thoroughly and did not see any additional large stone fragments. A retrograde pyelogram was performed and was notable for mild left hydroureteronephrosis, no extravasation. Next, I withdrew the ureteroscope along with access sheath and no additional stones were seen in the ureter. The previously placed wire was then utilized to advance a #6-Omani x 22-32 cm JJ ureteral stent up into the left collecting system. The wire was then removed and there was adequate curls to the stent in the left renal pelvis and in the bladder. The bladder was then emptied of all fluid and this marked the conclusion of the procedure. Patient was then taken out of dorsal lithotomy position, awakened from anesthesia and transported to the recovery room in stable condition. ESTIMATED BLOOD LOSS: 0 mL. COMPLICATIONS: None. SPECIMENS: Kidney stone fragments. PLAN: The patient will go back up to her room and if her pain is controlled there, she will be discharged home. She will followup in the clinic in approximately 1-2 weeks for stent removal. BASIM
--- NOTE | 2017-04-08 07:03 | DSES ---
DATE OF ADMISSION: 04/03/2017 DATE OF DISCHARGE: 04/04/2017 ADMISSION DIAGNOSIS: Obstructing kidney stone. DISCHARGE DIAGNOSIS: Obstructing kidney stone. ATTENDING PHYSICIAN: Dr. Linus Bonner. DISCHARGE PHYSICIAN: Dr. Linus Bonner. PROCEDURES PERFORMED: Cystoscopy, left ureteroscopy, laser lithotripsy, basket extraction of stones, left ureteral stent exchange. HISTORY OF PRESENT ILLNESS: This is a 26-justen-old female who was found to have a 1 cm obstructing left ureteropelvic junction stone a little over a week ago. She was brought to the operating room for stent placement at that time. Despite placement of the stent, her pain worsened over the week, and therefore she presented back to the emergency room on 04/03/2017. She was admitted to the hospital for pain control with the plan of taking her to the operating room on 04/04/2017 for the above listed procedure. HOSPITALIZATION COURSE: Patient was admitted to the hospital on 04/03/2017 for pain management. She was kept n.p.o. that evening in preparation for surgery the next day. She was taken to the operating room on 04/04/2017 for the above listed procedure. Postoperative, her pain was under much better control. She was tolerating regular diet. She was therefore discharged home on 04/04/2017 after surgery in good condition. She will followup in the clinic in 1-2 weeks for stent removal.
== END 2017-04-04 19:15 | disposition home or self-care (01) ==
LOC: M ED 17:17 → M ED INP 20:53 → M PED 23:15
PROVIDERS: ADMIT Urology; ATTEND Urology
DX: N13.0 Hydronephrosis with ureteropelvic junction obstruction (principal); M54.9 Dorsalgia, unspecified; R51 Headache; E66.9 Obesity, unspecified; F17.210 Nicotine dependence, cigarettes, uncomplicated; Z79.899 Other long term (current) drug therapy; Z88.0 Allergy status to penicillin; Z88.5 Allergy status to narcotic agent
CPT/HCPCS: 52332; 52352; 74176; 74420; 80048; 81001; 82360; 85025; 87086; 88300; 96365; 96375; 96376; 99284; C1769; C2617; J0690; J1100; J1170; J1956; J2250; J2405; J2765; J3010; Q9961

== ENCOUNTER → 2017-11-24 | Outpatient (CLI) | payer OTHER ==
[~2017-11-24] MED LIST changes: -BACT800T5 PO; -CIPR-249 PO; -GABA-282 PO; -IBUP-1022 PO; +LIDOCAINE 1% MDV 20ML VIAL As Ordered; -MELO15TA4 PO; -ROBA750T4 PO
== END | disposition home or self-care (01) ==
LOC: M IRPRO 09:16
DX: T85.9XXA Unspecified complication of internal prosthetic device, implant and graft, initial encounter (principal); Z30.8 Encounter for other contraceptive management
CPT/HCPCS: 11982

== ENCOUNTER → 2018-02-13 | Outpatient (CLI) | payer OTHER | LOC: M WUC 18:53 | DX: M54.5 Low back pain (principal) | CPT/HCPCS: 72110 ==

== ENCOUNTER 2018-02-24 20:34 | Emergency (ER) | payer OTHER | END 2018-02-24 23:04 | disposition home or self-care (01) | LOC: M ED 20:34 | DX: S86.911A Strain of unspecified muscle(s) and tendon(s) at lower leg level, right leg, initial encounter (principal); X58.XXXA Exposure to other specified factors, initial encounter; Y92.9 Unspecified place or not applicable; Y93.01 Activity, walking, marching and hiking; Y99.9 Unspecified external cause status; I10 Essential (primary) hypertension; G43.909 Migraine, unspecified, not intractable, without status migrainosus; G62.9 Polyneuropathy, unspecified; Z87.442 Personal history of urinary calculi; Z72.0 Tobacco use; Z79.899 Other long term (current) drug therapy; Z88.0 Allergy status to penicillin | CPT/HCPCS: 93971 ==

== ENCOUNTER 2018-07-08 17:36 | Emergency (ER) | payer OTHER ==
[2018-07-08] MEDS: ONDANSETRON 4 MG ORAL DISINTEGRATING TAB (Q0162 PER 1MG) PO (18:43)
[2018-07-08 18:52] LABS: HEMATOCRIT 41.6 % (36.0-47.0); HEMOGLOBIN 13.8 g/dl (12.0-15.5); MEAN CORPUSCULAR HEMOGLOBIN 27.5 pg (27.0-33.0); MEAN CORPUSCULAR HGB CONC 33.2 g/dl (32.0-36.5); MEAN CORPUSCULAR VOLUME 82.9 fl (80.0-96.0); PLATELET COUNT, AUTOMATED 419 10^3/uL (150-450); RED BLOOD COUNT 5.02 10^6/uL (4.00-5.40); RED CELL DISTRIBUTION WIDTH 13.4 % (11.5-14.5); WHITE BLOOD COUNT 16.1 10^3/uL (4.0-10.0)
[2018-07-08 19:06] LABS: CONTROL LINE HCG INT CTR LINE PRESENT; HCG, SERUM QUALITATIVE NEGATIVE (NEGATIVE)
[2018-07-08 19:09] LABS: ANION GAP 10 MEQ/L (8-16); BLOOD UREA NITROGEN 11 MG/DL (7-18); CARBON DIOXIDE LEVEL 25 MEQ/L (21-32); CHLORIDE LEVEL 104 MEQ/L (98-107); GLOMERULAR FILTRATION RATE > 60.0 (>60); GLUCOSE, FASTING 118 MG/DL (70-100); POTASSIUM SERUM 3.9 MEQ/L (3.5-5.1); SODIUM LEVEL 139 MEQ/L (136-145)
[2018-07-08 19:24] LABS: INR 0.96; PROTHROMBIN TIME 12.9 SECONDS (12.1-14.4)
[2018-07-08 20:09] LABS: KETONE, URINE AUTO RFX TRACE mg/dL (NEGATIVE); MUCUS, URINE RFX SMALL (NEGATIVE); NITRITE, URINE AUTO RFX NEGATIVE (NEGATIVE); RBC, URINE AUTO RFX 6 /HPF (0-3); SPECIFIC GRAVITY UR AUTO RFX 1.031 (1.002-1.035); SQUAM EPITHELIAL CELL UR AURFX 28 /HPF (0-6)
[2018-07-08 20:26] LABS: LEUKOCYTE ESTERASE UR AUTO RFX 2+ (NEGATIVE); WBC, URINE AUTO RFX 48 /HPF (0-3)
== END 2018-07-08 20:37 | disposition home or self-care (01) ==
LOC: M ED 17:36
DX: N39.0 Urinary tract infection, site not specified (principal); K64.9 Unspecified hemorrhoids; Z87.891 Personal history of nicotine dependence; Z79.899 Other long term (current) drug therapy; Z88.0 Allergy status to penicillin
CPT/HCPCS: Q0162

== ENCOUNTER 2018-07-31 08:36 | Emergency (ER) | payer OTHER ==
[2018-07-31] MEDS: METOCLOPRAMIDE INJ 10MG/2ML VIAL (J2765) IV (10:15)
[2018-07-31] MEDS: diphenhydrAMINE INJ 50MG/ML VIAL (J1200) IV (10:15)
[2018-07-31] MEDS: NS 1,000 ML IV (10:15)
[2018-07-31] MEDS: KETOROLAC 30 MG/ML VIAL (J1885) IV (10:16)
== END 2018-07-31 11:02 | disposition home or self-care (01) ==
LOC: M ED 08:36
DX: G43.909 Migraine, unspecified, not intractable, without status migrainosus (principal); F33.9 Major depressive disorder, recurrent, unspecified; F41.9 Anxiety disorder, unspecified; M54.30 Sciatica, unspecified side; Z79.3 Long term (current) use of hormonal contraceptives; Z88.0 Allergy status to penicillin; F17.210 Nicotine dependence, cigarettes, uncomplicated
CPT/HCPCS: J1200

== ENCOUNTER → 2018-10-07 | Outpatient (REF) | payer OTHER ==
[~2018-10-07] MED LIST changes: +BACL10TA2 PO; +BACT800T5 PO; +CIPR-249 PO; +CIPR500T3 PO; +EXCETAB80 PO; +FLOM0.4C39 PO; +FLON1SPR; +GABA-843 PO; +IBUP-1022 PO; -LIDOCAINE 1% MDV 20ML VIAL As Ordered; +MELO15TA28 PO; +METH1TAB40 PO; +OXYBPOW PO; +OXYCODONE; +PERC5TAB12 PO; +PROC1AER16 PR; +ROBA750T4 PO; +TYLE325T5 PO; +XULA1DIS TD
== END ==
LOC: M LAB REF 17:16
PROVIDERS: ATTEND Physician Assistant
DX: M54.42 Lumbago with sciatica, left side (principal)

== ENCOUNTER → 2020-05-30 | Outpatient (CLI) | payer OTHER | LOC: M WHC 14:20 | PROVIDERS: ATTEND Obstetrics & Gynecology | DX: Z53.9 Procedure and treatment not carried out, unspecified reason (principal); O99.210 Obesity complicating pregnancy, unspecified trimester; E66.9 Obesity, unspecified; Z3A.00 Weeks of gestation of pregnancy not specified ==

== ENCOUNTER → 2020-06-08 | Outpatient (CLI) | payer OTHER | LOC: M LAB 07:15 | PROVIDERS: ATTEND Obstetrics & Gynecology | DX: O99.210 Obesity complicating pregnancy, unspecified trimester (principal); Z3A.00 Weeks of gestation of pregnancy not specified ==

== ENCOUNTER → 2020-06-14 | Outpatient (CLI) | payer OTHER ==
--- NOTE | 2020-06-15 07:40 | REP ---
INDICATION: ANATOMY COMPARISON: None. TECHNIQUE: Transabdominal obstetrical ultrasound with color Doppler evaluation. FINDINGS: Examination demonstrates a single live intrauterine in cephalic presentation. motion is identified by technologist. Placenta is noted posterior and grade 1 without evidence for placenta previa or abruption. Amniotic fluid volume is normal. Cervix measures 3.3 cm in length and appears closed. No evidence for nuchal cord. Gestational age by LMP 19 weeks 0 days with LAZARO 11/08/2020. Gestational age by current measurements 19 weeks 2 days with LAZARO 11/06/2020. FHR equals 165 beats per minute. BPD: 4.5 cm 19 weeks 3 days HC: 16.7 cm 19 weeks 3 days AC: 13.6 cm 19 weeks 0 days FL: 3.0 cm 19 weeks 2 days HL: 2.8 cm 19 weeks 1 day HC/AC: 1.23 Estimated weight 279 grams (58thpercentile). Anatomical assessment demonstrates normal structures including cranium, choroid plexus, cavum, cerebellum/posterior fossa, facial features, lungs, four-chamber heart/ventricular outflow tracts, diaphragm, stomach, cord insertion/three-vessel cord, kidneys/bladder, spine, and extremities. IMPRESSION: Single live intrauterine in cephalic presentation demonstrating appropriate interval growth. Anatomical assessment is complete and normal. <Electronically signed by Varun Aldridge > 06/15/20 [id number]
== END ==
LOC: M WHC 15:29
PROVIDERS: ATTEND Obstetrics & Gynecology
DX: O99.212 Obesity complicating pregnancy, second trimester (principal); Z3A.16 16 weeks gestation of pregnancy

== ENCOUNTER → 2020-08-22 | Outpatient (CLI) | payer OTHER | LOC: M WHC 11:39 | PROVIDERS: ATTEND Obstetrics & Gynecology | DX: Z34.93 Encounter for supervision of normal pregnancy, unspecified, third trimester (principal); Z3A.28 28 weeks gestation of pregnancy; Z53.9 Procedure and treatment not carried out, unspecified reason ==

== ENCOUNTER → 2020-08-25 | Outpatient (CLI) | payer OTHER ==
--- NOTE | 2020-08-29 07:50 | REP ---
INDICATION: PRE EXISTING DIABETES,GROWTH COMPARISON: 06/14/2020 TECHNIQUE: Transabdominal obstetrical ultrasound with color Doppler evaluation. FINDINGS: Examination demonstrates a single live intrauterine in cephalic presentation. motion is identified by technologist. Placenta is noted posterior and grade 1 without evidence for placenta previa or abruption. Amniotic fluid volume is normal. Cervix measures 3.7 cm in length and appears closed.. Gestational age by LMP 29 weeks 2 days with LAZARO 11/08/2020. Gestational age by current measurements 30 weeks 6 days with LAZARO 10/28/2020. FHR equals 146 beats per minute. BPD: 7.9 cm 31 weeks 4 days HC: 28.6 cm 31 weeks 3 days AC: 26.6 cm 30 weeks 5 days FL: 6.0 cm 31 weeks 1 day HL: 5.0 cm 29 weeks 2 days HC/AC: 1.07 Estimated weight 1677 grams (>97thpercentile based on age by LMP). BRENNAN: 19.3 cm IMPRESSION: Single live intrauterine in cephalic presentation demonstrating greater than expected interval growth and estimated weight. Correlation is recommended. <Electronically signed by Varun Aldridge > 08/29/20 0721
== END ==
LOC: M WHC 13:16
PROVIDERS: ATTEND Obstetrics & Gynecology
DX: O24.313 Unspecified pre-existing diabetes mellitus in pregnancy, third trimester (principal); Z3A.30 30 weeks gestation of pregnancy

== ENCOUNTER → 2020-09-04 | Outpatient (REF) | payer OTHER ==
[~2020-09-04] MED LIST changes: +GABA-282 PO; -GABA-843 PO; +METH-1164 PO; -METH1TAB40 PO
[2020-09-04 15:43] LABS: HEMATOCRIT 36.6 % (36.0-47.0); HEMOGLOBIN 11.5 g/dl (12.0-15.5); MEAN CORPUSCULAR HEMOGLOBIN 27.2 pg (27.0-33.0); MEAN CORPUSCULAR HGB CONC 31.4 g/dl (32.0-36.5); MEAN CORPUSCULAR VOLUME 86.5 fl (80.0-96.0); PLATELET COUNT, AUTOMATED 330 10^3/uL (150-450); RED BLOOD COUNT 4.23 10^6/uL (4.00-5.40); WHITE BLOOD COUNT 12.5 10^3/uL (4.0-10.0)
== END ==
LOC: M PLALAB 13:34
PROVIDERS: ATTEND Specialist
DX: O24.119 Pre-existing type 2 diabetes mellitus, in pregnancy, unspecified trimester (principal)

== ENCOUNTER → 2020-09-13 | Outpatient (CLI) | payer OTHER | LOC: M WHC 14:48 | PROVIDERS: ATTEND Obstetrics & Gynecology | DX: O24.313 Unspecified pre-existing diabetes mellitus in pregnancy, third trimester (principal); Z53.9 Procedure and treatment not carried out, unspecified reason ==

== ENCOUNTER → 2020-09-14 | Outpatient (CLI) | payer OTHER ==
[~2020-09-14] MED LIST changes: -METH-1164 PO; +METH1TAB40 PO
--- NOTE | 2020-09-14 10:44 | REP ---
INDICATION: GROWTH COMPARISON: 08/25/2020 TECHNIQUE: Transabdominal obstetrical ultrasound with color Doppler evaluation. FINDINGS: Examination demonstrates a single live intrauterine in cephalic presentation. motion is identified by technologist. Placenta is noted posterior and grade 2 without evidence for placenta previa or abruption. Amniotic fluid volume is normal. Cervix measures 3.1 cm in length and appears closed.. Gestational age by LMP 32 weeks 1 day with LAZARO 11/08/2020. Gestational age by current measurements 33 weeks 4 days with LAZARO 10/29/2020. FHR equals 140 beats per minute. BPD: 8.6 cm 34 weeks 4 days HC: 31.0 cm 34 weeks 4 days AC: 28.4 cm 32 weeks 3 days FL: 6.3 cm 32 weeks 4 days HL: 5.8 cm 33 weeks 2 days HC/AC: 1.09 Estimated weight 2070 grams (65thpercentile). BRENNAN: 18.2 cm (8.6-24.2) IMPRESSION: Single live advanced gestation in cephalic presentation demonstrating appropriate estimated weight and growth. <Electronically signed by Varun Aldridge > 09/14/20 [id number]
== END ==
LOC: M WHC 10:05
PROVIDERS: ATTEND Obstetrics & Gynecology
DX: O24.313 Unspecified pre-existing diabetes mellitus in pregnancy, third trimester (principal); Z3A.32 32 weeks gestation of pregnancy

== ENCOUNTER → 2020-10-11 | Outpatient (REF) | payer OTHER ==
[~2020-10-11] MED LIST changes: +METH-1164 PO; -METH1TAB40 PO
== END ==
LOC: M PLALAB 11:00
PROVIDERS: ATTEND Obstetrics & Gynecology
DX: Z34.93 Encounter for supervision of normal pregnancy, unspecified, third trimester (principal); Z3A.36 36 weeks gestation of pregnancy

== ENCOUNTER → 2020-10-11 | Outpatient (CLI) | payer OTHER ==
--- NOTE | 2020-10-11 11:18 | REP ---
INDICATION: PRE EXISTING DIABETES,GROWTH. COMPARISON: 09/14/2020. TECHNIQUE: Real-time sonographic evaluation of the gravid uterus performed. FINDINGS: Estimated gestational age is36 weeks 0 days, EDC 11/08/2020. Today's measurements indicate appropriate growth. Presentation: Cephalic Placenta posterior, grade 2, without evidence of placenta previa. heart rate is recorded at 129 beats per minute. Amniotic fluid is subjectively normal. BRENNAN 23.5, normal range 7.7-24.9. Closed cervical length is measured at 3.5 cm. Biometry chart: BPD: 94 mm, 38 weeks 2 days, 81st percentile. HC: 337 mm, 38 weeks 4 days, 93rd percentile AC: 331 mm, 37 weeks 0 days, 64th percentile Femur length: 71 mm, 36 weeks 3 days, 56th percentile HC to AC ratio: 1.02, normal range 0.92-1.11. Estimated weight: 3132g, 80th percentile. IMPRESSION: Viable single intrauterine gestation as above. Appropriate growth. <Electronically signed by Matti Foley > 10/11/20 1111
--- NOTE | 2020-10-11 13:56 | REP ---
INDICATION: PRE EXISTING DIABETES,BPP. COMPARISON: 10/11/2020 and 09/14/2020. TECHNIQUE: Real-time sonographic evaluation of the gravid uterus performed. FINDINGS: Estimated gestational age is36 weeks 0 days, EDC 11/08/2020. Presentation: Cephalic Placenta posterior, grade 2, without evidence of placenta previa. heart rate is recorded at 149 beats per minute. Amniotic fluid is subjectively normal. BRENNAN 18.9, normal range 7.7-24.9 Biophysical profile score 8/8. IMPRESSION: Biophysical profile score 8/8. <Electronically signed by Matti Foley > 10/11/20 [id number]
== END ==
LOC: M WHC 09:34
PROVIDERS: ATTEND Obstetrics & Gynecology
DX: O24.313 Unspecified pre-existing diabetes mellitus in pregnancy, third trimester (principal); Z3A.36 36 weeks gestation of pregnancy

== ENCOUNTER 2020-10-26 07:18 | Inpatient (IN) | payer OTHER ==
[~2020-10-26] VITALS: Ht 160 cm; Wt 111.9 kg
[2020-10-26] VITALS (12 sets, daily range): BP systolic 94–135; BP diastolic 47–64
[2020-10-26] MEDS ORDERED: INSULIN REGULAR IN 0.9 % NACL 100 UNIT in IV 1 EA IV SCH ×2 (08:14)
[2020-10-26] MEDS ORDERED: NS 1,000 ML IV SCH ×2 (08:14→12:45)
[2020-10-26] MEDS ORDERED: INSULIN IV RATE CHANGE DOCUMENTATION ML/HR XX SCH (08:15)
[2020-10-26] MEDS ORDERED: PRENTAB9 PO (08:17)
[2020-10-26] MEDS ORDERED: NOVOINJ13 SC (08:23)
[2020-10-26] MEDS ORDERED: NOVOINJ12 SC (08:23)
[2020-10-26 08:26] LABS: HEMATOCRIT 35.7 % (36.0-47.0); HEMOGLOBIN 11.2 g/dl (12.0-15.5); MEAN CORPUSCULAR HGB CONC 31.4 g/dl (32.0-36.5); MEAN CORPUSCULAR VOLUME 82.8 fl (80.0-96.0); PLATELET COUNT, AUTOMATED 255 10^3/uL (150-450); RED BLOOD COUNT 4.31 10^6/uL (4.00-5.40); WHITE BLOOD COUNT 10.6 10^3/uL (4.0-10.0)
[2020-10-26] MEDS ORDERED: miSOPROStol 50MCG 1/2 TABLET PV SCH (09:00)
[2020-10-26] MEDS ORDERED: miSOPROStol 50MCG 1/2 TABLET PO SCH (09:00)
[2020-10-26] MEDS ORDERED: D5W/0.9% SODIUM CHLORIDE 1,000 ML IV SCH (10:30)
[2020-10-26] MEDS ORDERED: OXYTOCIN DRIP 30 UNITS in IV 1 EA IV SCH (15:20)
--- NOTE | 2020-10-26 23:07 | HPEPDOC ---
Obstetrical History & Physical General Date of Admission Oct 26, 2020 at 07:18 History of Present Illness 29-year-old 3 para 2 presents at 38 weeks 1 day estimated gestational age EDC 11/08/2020 presents for induction of labor secondary to gestational diabetes Chief Complaint: Induction of labor Information Provided By: Patient Age: 29 : 3 Livin Care Care: Good Care Dating Final EDC: Nov 07, 2020 Final EDC by: LMP Past Medical History Past Obstetrical History #1: Date of Delivery: Aug 30, 2011 Type of Delivery: Spontaneous Vaginal Del. Sex of Infant: Male Complications: No Past Obstetrical History #2: Date of Delivery: December 20, 2015 Type of Delivery: Spontaneous Vaginal Del. Sex of : Male Complications: No SAFETY COUNSELOR History: No pertinent history Past Medical History Surgical History: Gallbladder Family History Significant Family History: Diabetes, Hypertension Social History Marital Status: Family situation: Spouse/partner home Psychosocial History: No pertinent psych hx * Smoker: former Smoker Drugs: denies Allergies Coded Allergies: amoxicillin (Verified Allergy, Mild, NAUSEA AND VOMITING, 10/26/20) acetaminophen (Verified Allergy, Unknown, 10/26/20) VOMITING hydrocodone (Verified Allergy, Unknown, 10/26/20) VOMITING Medications Scheduled Norelgestromin/Ethin.estradiol (Xulane Patch) 1 Dis Dis, 1 PATCH TD DAILY No.137/Iron/Folic Acd ( Vitamin Tablet) 1 Each Tablet, 1 TAB PO DAILY Scheduled PRN Acetaminophen (Tylenol) 325 Mg Tab, 650 MG PO Q4HP PRN for PAIN OR TEMP > 101 Miscellaneous Medications Acetaminophen/Aspirin/Caffein (Excedrin Migraine 250-250-65 mg) 1 Tab Tab, 1 TAB PO Insulin NPH Human Isophane (Novolin N) 100 Unit/1 Ml Vial, 100 UNITS SC Insulin Regular, Human (Novolin R) 100 Unit/1 Ml Vial, 100 UNITS SC Physical Examination Physical Examination GENERAL: Alert and oriented times three. BREAST: . ABDOMEN: Gravid and non-tender to touch. FETUS: Is vertex (VTX) by sterile vaginal examination (SVE), fetus is vertex (VT X) by Robin. HEART RATE: Regular rate and rhythm. LUNGS: Clear to auscultation (CTA). Vital Signs/I&O Vital Signs Date Time Temp Pulse Resp B/P (MAP) Pulse Ox O2 Delivery O2 Flow Rate FiO2 10/26/20 18:24 98.4 95 18 112/64 (80) Laboratory Data 24H LABS Laboratory Tests 2 10/26/20 08:10: Nucleated Red Blood Cells % (auto) 0.0, Syphilis Serology NONREACTIVE 10/26/20 08:27: Bedside Glucose (Misc Panel) 76 10/26/20 09:08: Serology Scanned Report Hepatitis B Testing 10/26/20 10:15: Bedside Glucose (Misc Panel) 61L 10/26/20 12:34: Bedside Glucose (Misc Panel) 93 10/26/20 14:33: Bedside Glucose (Misc Panel) 69L 10/26/20 16:35: Bedside Glucose (Misc Panel) 85 10/26/20 18:27: Bedside Glucose (Misc Panel) 86 10/26/20 20:39: Bedside Glucose (Misc Panel) 78 CBC/BMP Laboratory Tests 10/26/20 08:10 Pertinent Laboratoy Data Blood Type: A+ RBC Antibody Screen: Negative HIV: Negative Hepatitis B: Negative Rapid Plasma Reagin: Nonreactive Chlamydia/Gonorrhea: Negative Group B Streptococcus: Negative Anatomy Ultrasound Placenta Location: Posterior Normal Anatomy: Yes Placenta Previa: No Vaginal Examination Dilation: 1cm Effacement: 50% Station: -3 Cervical Consistency: Medium Cervical Position: Posterior Presentation: Cephalic presentation Assessment Variability: Moderate Decelerations: None Tocometer Contractions: No Assessment/Plan Assessment 29-year-old 3 para 2 with 38 weeks and 1 day Pre-gestational diabetes, controlled Reassuring status Plan Admit and orient. 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 Group B Streptococcus (GBS) negative. Labs and intravenous (IV) per unit protocol. Counseled on Pitocin and induction of labor (IOL). Anticipate normal spontaneous delivery (). C-S as appropriate. Labor and Delivery Counseling -Patient been thoroughly counseled in regards to induction labor. Patient has been counseled on medications as well as procedures performed in labor and delivery. Patient also verbally consented to the emergency surgery blood products anesthesia and desires to proceed with induction of labor. Will initiat e her induction with 50 g of misoprostol orally SISSY BARAJAS MD. Oct 26, 2020 23:07
[2020-10-26] MEDS ORDERED: BUTORPHANOL 2 MG/ML INJ (J0595) IV ONE (23:15)
[2020-10-26] MEDS ORDERED: PROMETHAZINE INJ 25 MG/ML VIAL (J2550) IV ONE (23:15)
[2020-10-27] MEDS ORDERED: DIBUCAINE 1% OINTMENT 30GM TOP PRN (00:25)
[2020-10-27] MEDS ORDERED: RHOGAM 300 MCG (1500 IU) INJ (J2790) IM SCH (00:25)
[2020-10-27] MEDS ORDERED: METHYLERGONOVINE MALEATE 0.2 MG TAB PO PRN (00:25)
[2020-10-27] MEDS ORDERED: MEASLES,MUMPS,RUBELLA VACCINE INJ (MMR-II) (90707) SC SCH (00:25)
[2020-10-27] MEDS ORDERED: MOM 30ML SUSPENSION UDC PO PRN (00:25)
[2020-10-27] MEDS ORDERED: DOCUSATE SODIUM 100MG CAPSULE PO PRN (00:25)
[2020-10-27] MEDS ORDERED: ANUSOL HC CREAM 30GM TOP PRN (00:25)
[2020-10-27] MEDS ORDERED: IBUPROFEN 600MG TAB PO PRN (00:25)
[2020-10-27] MEDS ORDERED: IBUPROFEN 800 MG TAB PO PRN (00:25)
[2020-10-27] MEDS ORDERED: OXYTOCIN DRIP 30 UNITS in IV 1 EA IV SCH (00:25)
--- NOTE | 2020-10-27 00:34 | DNPDOC ---
[facility] Delivery Note Delivery Note DATE OF DELIVERY: 10/27/2020 TIME OF : 0010 GENDER: Female APGARS: 7 and 9. WEIGHT: 3230 grams or 7 pounds 2 ounces. LACERATIONS: none ANESTHESIA: none ESTIMATED BLOOD LOSS: 200 ml COUNTS: 5 laparotomy sponges accounted for prior to after delivery. DELIVERY NOTE: On 10/27/2020 Mrs Hanson a 29yo G3, now P3, had a spontaneous vaginal delivery of viable female , Apgars, 7 and 9 and weight 3230 g or 7 lbs. 2 oz. Head was delivered occiput anterior (OA), followed by delivery of the shoulders and corpus. was handed to mom with a good cry. Cord was clamped times two and was cut by support person under my direction. Placenta was then drained and delivered grossly intact. A premixed bag of 500 mL of normal saline with 30 units of Pitocin was then bolused along with uterine massage until the uterus was firm. On inspection, cervix, vagina, perineum was grossly intact and hemostatic. Mom and baby in recovery on stable condition. SISSY BARAJAS MD. Oct 27, 2020 00:34
[2020-10-27 03:00] VITALS: BP 117/57
[2020-10-27 06:00] VITALS: BP 143/81
[2020-10-27] MEDS: PRENATAL VITAMINS CHEWABLE TABLET PO SCH (09:12)
[2020-10-27 18:00] VITALS: BP 126/93
[2020-10-28 05:57] VITALS: BP 118/65
[2020-10-28] MEDS: PRENATAL VITAMINS CHEWABLE TABLET PO SCH (09:39)
== END 2020-10-28 10:55 | disposition home or self-care (01) | DRG 560 ==
LOC: M LDI 07:18 → M OBS 10-27 03:05
PROVIDERS: ADMIT Obstetrics & Gynecology; ATTEND Obstetrics & Gynecology
PROC: 3E0DXGC Introduction of Other Therapeutic Substance into Mouth and Pharynx, External Approach (ICD-10-PCS; 2020-10-26)
PROC: 10E0XZZ Delivery of Products of Conception, External Approach (ICD-10-PCS; principal; 2020-10-27)
DX: O24.414 Gestational diabetes mellitus in pregnancy, insulin controlled (principal); Z88.0 Allergy status to penicillin; Z37.0 Single live birth; Z3A.38 38 weeks gestation of pregnancy; Z88.5 Allergy status to narcotic agent; Z88.6 Allergy status to analgesic agent

== ENCOUNTER → 2022-08-28 | Outpatient (CLI) | payer OTHER ==
[~2022-08-28] MED LIST changes: +NOVOINJ12 SC; +NOVOINJ13 SC; +OMEP40CA4 PO; +PRENTAB9 PO; +WELLTAB38 PO
== END ==
LOC: M LABSMTC 10:26
PROVIDERS: ATTEND Anesthesiology
DX: Z01.812 Encounter for preprocedural laboratory examination (principal); Z11.52 Encounter for screening for COVID-19

== ENCOUNTER 2022-09-02 10:11 | Day surgery (SDC) | payer OTHER ==
[~2022-09-02] VITALS: Ht 160 cm; Wt 106.1 kg
[~2022-09-02 10:11] MED LIST changes: +NS 1,000 ML IV ONE
[2022-09-02] MEDS ORDERED: LIDOCAINE 2% 100MG/5ML SDV (FOR ANES.) As Ordered ONE (10:35)
[2022-09-02] MEDS ORDERED: propofoL 500 MG/50 ML VIAL As Ordered ONE (10:35)
[2022-09-02] MEDS ORDERED: fentaNYL 100 MCG/2 ML INJECTION As Ordered ONE (10:35)
[2022-09-02 11:55] VITALS: BP 130/60
== END 2022-09-02 12:04 | disposition home or self-care (01) ==
LOC: M OPP 10:11
PROVIDERS: ATTEND Internal Medicine Gastroenterology
DX: K64.0 First degree hemorrhoids (principal); K22.89 Other specified disease of esophagus; B96.81 Helicobacter pylori [H. pylori] as the cause of diseases classified elsewhere; Z79.899 Other long term (current) drug therapy; Z88.1 Allergy status to other antibiotic agents; F32.9 Major depressive disorder, single episode, unspecified; F41.9 Anxiety disorder, unspecified; G43.909 Migraine, unspecified, not intractable, without status migrainosus; Z86.16 Personal history of COVID-19; Z87.442 Personal history of urinary calculi

== ENCOUNTER → 2023-04-28 | Outpatient (CLI) | payer OTHER ==
[~2023-04-28] MED LIST changes: -NS 1,000 ML IV ONE
== END ==
LOC: M RAD 15:02
PROVIDERS: ATTEND Physician Assistant Medical
DX: M21.241 Flexion deformity, right finger joints (principal)

== ENCOUNTER 2025-06-29 11:30 | Day surgery (SDC) | payer OTHER ==
[~2025-06-29] VITALS: Ht 160 cm; Wt 72.3 kg
[~2025-06-29 11:30] MED LIST changes: -FLOM0.4C39 PO; +FLUTISP; +GABA-1172 PO; -GABA-282 PO; -IBUP-1022 PO; +IBUP600T42 PO; +KETOROLAC 30 MG/ML 1 ML VIAL As Ordered ONE; +LIDOCAINE 2% 100 MG/5 ML SDV (FOR ANES.) As Ordered ONE; +LORA-1041 PO; +ONDANSETRON 4MG/2ML VIAL As Ordered ONE; +TAMS-18 PO; +dexAMETHasone 4 MG/ML 1 ML VIAL As Ordered ONE
[2025-06-29 12:04] LABS: PLATELET COUNT, AUTOMATED 321 10^3/uL (150-450)
[2025-06-29] MEDS ORDERED: MIDAZOLAM INJ 2 MG/2 ML VIAL As Ordered ONE (12:32)
[2025-06-29] MEDS ORDERED: ACETAMINOPHEN 1000MG/100ML IV BAG As Ordered ONE (12:32)
[2025-06-29] MEDS: LIDOCAINE 1% SDV 30 ML VIAL As Ordered ONE (13:32)
[2025-06-29 14:40] VITALS: BP 136/70; TEMP 97; O2SAT 100
== END 2025-06-29 14:55 | disposition home or self-care (01) ==
LOC: M SDC 11:30
PROVIDERS: ATTEND Specialist
DX: N92.0 Excessive and frequent menstruation with regular cycle (principal); K21.9 Gastro-esophageal reflux disease without esophagitis; Z79.899 Other long term (current) drug therapy; F17.290 Nicotine dependence, other tobacco product, uncomplicated; Z98.84 Bariatric surgery status; F41.9 Anxiety disorder, unspecified; F32.A Depression, unspecified; Z88.0 Allergy status to penicillin
CPT/HCPCS: 36415; 58563; 85027; 88305; J0131; J1100; J1885; J2250; J2405; J3010